=== PATIENT | female | born 1960 | race African-American/Black ===

== ENCOUNTER 2018-03-04 05:45 | Day surgery (SDC) | payer BC ==
[~2018-03-04] VITALS: Ht 154.9 cm; Wt 72.6 kg
[~2018-03-04 05:45] MED LIST: AMLODIPINE5 MG PO; APIDRA1 ML SC; ASPIRIN; ATORVASTATIN CA40 MG PO; ATUSS DS OR; BABY ASPIRIN81 MG PO; BACTRIM DS1 TAB PO; BRIMONIDINE TAR0.2 % OU; CEFTIN250 MG OR; CILOSTAZOL100 MG PO; CIPROFLOXACN500 MG PO; CLOBETASOL0.051 EX; CRESTOR40 MG PO; DIOVAN HC2 PO; DOXYCYCL HYC100 M3 OR; FIORICET PO; FISH OIL300 MG OR; FLEXERIL PO; FLONASE AL50 MCG/ACT; GABAPENTIN100 MG PO; HUMULIN R1 M1 SC; IMDUR30 MG PO; INSULIN PUM1; ISOSORB MONO60 M1 PO; KEFLEX500 M1 PO; KEFLEX500 MG PO; LANTUS100 MG/ML SC; LISINOPRIL10 MG PO; LOPRESSOR 550 MG/TAB PO; LORTAB 10-325 M1 TAB PO; LORTAB 5/3255 MG PO; LORTAB5 PO; LYRICA150 MG PO; LYRICA50 MG PO; LYRICA75 MG OR; METRONIDAZOLE500 MG PO; MUPIROCIN2 % EX; NAPROSYN500 MG PO; NORCO1 TA1 PO; NOVOLOG FL100 UNIT/M SC; NOVOLOG MIX SC; NOVOLOG100 IU/1 M SC; PANTOPRAZOLE SO40 MG PO; PERCOCET 5/321 COMBO PO; PERCOCET 5/325M1 TAB OR; PLAVIX75 MG PO; PRAVASTATIN20 MG PO; PREDNISONE20 MG OR; PRILOSEC40 MG PO; PROMETH/COD1 ML OR; PROTONIX40 M2 PO; REPATHA140 MG/ML SC; SYMLIN0.6 MG/ML SC; TIMOLOL 0.5%5 ML OU; TOUJEO SOL300 UNIT/M SC; TRIAMCINOLON0.025 % EX; VICOPROFEN OR; ZETIA10 MG PO; ZITHROMAX250 MG OR; ZOCOR40 MG OR
[2018-03-04 08:02] VITALS: BP 169/70
== END 2018-03-04 08:27 | disposition home or self-care (01) | DRG 392 ==
LOC: ENDO 05:45 → ORM 12:20 → ENDO 12:20 → ORM 13:15
PROVIDERS: ATTEND Surgery
PROC: 0DJD8ZZ Inspection of Lower Intestinal Tract, Via Natural or Artificial Opening Endoscopic (ICD-10-PCS; principal; 2018-03-04)
DX: R15.9 Full incontinence of feces (principal); I25.10 Atherosclerotic heart disease of native coronary artery without angina pectoris; I73.9 Peripheral vascular disease, unspecified; Z85.048 Personal history of other malignant neoplasm of rectum, rectosigmoid junction, and anus; Z92.3 Personal history of irradiation; Z92.21 Personal history of antineoplastic chemotherapy; Z90.49 Acquired absence of other specified parts of digestive tract; Z95.820 Peripheral vascular angioplasty status with implants and grafts; Z79.02 Long term (current) use of antithrombotics/antiplatelets

== ENCOUNTER 2019-10-17 18:52 | Emergency (ER) | payer BC ==
[~2019-10-17] VITALS: Ht 154.9 cm; Wt 71.4 kg
[2019-10-17] MEDS ORDERED: TOPAMAX100 MG PO (19:21)
[2019-10-17] MEDS ORDERED: AMITRIPTYLIN25 MG PO (19:22)
[2019-10-17] MEDS ORDERED: VISTARIL25 MG PO (19:22)
[2019-10-17 19:41] VITALS: BP 187/64
[2019-10-17] MEDS ORDERED: BACTRIM DS1 TAB PO (19:43)
[2019-10-17] MEDS ORDERED: KEFLEX500 M1 PO (19:43)
== END 2019-10-17 21:25 | disposition home or self-care (01) | DRG 603 ==
LOC: ED 18:52
DX: L02.413 Cutaneous abscess of right upper limb (principal)

== ENCOUNTER 2020-06-21 17:01 | Observation (INO) | payer OTHER ==
[~2020-06-21] VITALS: Ht 154.9 cm; Wt 72.4 kg
[~2020-06-21 17:01] MED LIST changes: +AMITRIPTYLIN25 MG PO; +TOPAMAX100 MG PO; +VISTARIL25 MG PO
--- NOTE | 2020-06-21 17:02 | NUR ---
PATIENT IMMEDIATELY TO ROOM 12 FOR EVAL AND PHYSICIAN NOTIFIED OF PATIENT STATUS
[2020-06-21 17:29] LABS: HEMOGLOBIN 12.8 g/dl (12.0-16.0); IMMATURE GRANULOCYTES 0.2 % (0.0-5.0); MEAN CELL VOLUME 85.7 fL CALC (80.0-100.0); MEAN CORPUSCULAR HGB 26.1 pG CALC (26.0-32.0); MEAN CORPUSCULAR HGB CONC 30.5 g/dL CAL (32.0-36.0); NEUT# 3.64 thou/uL (2.00-7.15); RED BLOOD COUNT 4.9 mill/uL (4.20-5.60); RED CELL DISTRI WIDTH 13.5 % (11.5-15.5)
--- NOTE | 2020-06-21 17:45 | NUR ---
COVID-19 SWAB COMPLETED. PT TOLERATED WELL. PRESSURE IN CHEST IS NOW DOWN TO A 2/10. PT RESTING COMFORTABLY IN STRETCHER IN NAD. MD AT BEDSIDE AND REUESTED BP TAKEN TO BOTH ARMS LEFT ARM 134/60, RIGHT ARM 138/66. NOTIIFED.
[2020-06-21 17:49] LABS: ACT PARTIAL THROMBO TIME 25.4 SECONDS (20.0-32.5); ALBUMIN 4.5 g/dL (3.2-5.0); ANION GAP 8 (6-22 (CALC)); BUN 16 mg/dL (8-23); BUN/CREATININE RATIO 18 (12-20 (CALC)); CARBON DIOXIDE 31 mmol/l (22-30); CHLORIDE 101 mmol/l (95-108); CREATININE 0.9 mg/dL (0.5-1.0); GFR > 60 ML/MIN (>=60 (CALC)); GFR FOR AFR.AMER. > 60 ML/MIN (>=60 (CALC)); INTERNATIONAL NORMALIZED RATIO 0.9 RATIO (0.7-1.3); POTASSIUM 4.4 mmol/l (3.5-5.1); PROTHROMBIN TIME 9.4 SECONDS (9.0-12.5); SODIUM 136 mmol/l (137-146); TOTAL PROTEIN 8.8 g/dL (6.3-8.2)
[2020-06-21 17:53] LABS: ALKALINE PHOSPHATASE 183 u/l (38-126); BILIRUBIN, TOTAL 0.6 mg/dL (0.0-1.4); SGOT/AST 145 u/l (9-36)
--- NOTE | 2020-06-21 18:20 | NUR ---
AFTER GIVING MORPHINE PT REPORTS PAIN TO LEFT AC IV SITE. SWELLING NOTED. IV SITE NOTED TO BE INFILTRATED. IV REMOVED AND WARM COMPRESS APPLIED. MD NOTIFIED.
--- NOTE | 2020-06-21 19:58 | NUR ---
W/D SKIN SR NO ECTOPY NO CP NO BACK PAIN.NO SWEATS NO NAUSEA
--- NOTE | 2020-06-21 21:04 | NUR ---
REMEDICATED FOR BACK PAIN,SR NO ECTOPY NO CP NO SWEATS NO NAUSEA
--- NOTE | 2020-06-21 21:40 | NUR ---
W/D SKIN SR NO ECTOPY NO C/O CP NOR BACK PAIN
--- NOTE | 2020-06-21 22:40 | NUR ---
W/D SKIN SR NOO ST T CHANGES NO CP OR BACK BACK PAIN
--- NOTE | 2020-06-21 22:50 | NUR ---
PHONE REPORT TO NURSE JOHNNY ON MS2
--- NOTE | 2020-06-21 22:55 | NUR ---
PT TRANSPORTED TO 272 VIA STRETCHER ON TELE IN STABLE CONDITION
--- NOTE | 2020-06-21 23:03 | NUR ---
PT ARRIVED TO FLOOR VIA STRETCHER ACCOMPANIED BY ER STAFF. PT ALERT AND ORIENTED. NO APPARENT DISTRESS NOTED. PT AMBULATED FROM STRETCHER TO BED WITH STEADY GAIT. PT C/O MIDSTERNAL PAIN THAT RADIATED THROUGH TO UPPER BACK 05/10. PT AMBULATED TO BATHROOM TO VOID, URINE SAMPLE OBTAINED AT THIS TIME AND SENT TO LAB. PT DENIES ANY PROBLEMS VOIDING. DISCUSSED POC. PT VERBALIZED UNDERSTANDING. ORIENTED TO ROOM AND CALL LIGHT SYSTEM. SANDWICH AND ICE WATER PROVIDED. PT HAS INSULIN PUMP THAT HAS BEEN REMOVED PRIOR TO CTA AND CAN NOT BE REAPPLIED UNTIL BRINGS SUPPLYS IN AM. SKIN INTACT, TWO SMALL SCABS NOTED TO BACK OF LEFT ARM AND RIGHT ANKLE. BP ELEVATED AT THIS TIME, WILL MEDICATE FOR PAIN AND REASSESS. CALL LIGHT WITHIN REACH. PT DENIES ANY OTHER CURRENT WANTS OR NEEDS. WILL CONTINUE TO MONITOR.
[2020-06-21 23:05] VITALS: BP 175/77
[2020-06-21 23:36] LABS: URINE BILIRUBIN - DIPSTICK NEGATIVE (NEGATIVE); URINE BLOOD DIPSTICK NEGATIVE (NEGATIVE); URINE COLOR YELLOW; URINE GLUCOSE - DIPSTICK NEGATIVE (NEGATIVE); URINE KETONE NEGATIVE (NEGATIVE); URINE LEUK ESTERASE NEGATIVE (NEGATIVE); URINE NITRITE - DIPSTICK NEGATIVE (Negative); URINE PROTEIN - DIPSTICK TRACE mg/dL (NEG-TRACE)
[2020-06-21 23:57] VITALS: BP 206/81
--- NOTE | 2020-06-22 00:14 | NUR ---
PT BP CONTINUES TO BE ELEVATED. ORDERS RECEIVED FROM ER PHYSICIAN AT THIS TIME. WILL ADMINISTER ONCE PROFILED BY PHARMACY.
--- NOTE | 2020-06-22 00:54 | NUR ---
PT C/O PAIN IN BACK AND CHEST, NO RELIEF FROM LORTAB PREVIOUSLY ADMINISTERED. 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 WILL MEDICATE WHEN PROFILED.
[2020-06-22 03:50] VITALS: BP 155/52
--- NOTE | 2020-06-22 06:10 | NUR ---
PT MEDICATED FOR BACK PAIN 09/09. PT REPOSITIONED WITH EXTRA PILLOWS AND WARM PACK PROVIDED.
[2020-06-22 06:17] LABS: HEMATOCRIT 38.6 % (37.0-47.0); HEMOGLOBIN 11.7 g/dl (12.0-16.0); IMMATURE GRANULOCYTES 0.4 % (0.0-5.0); MEAN CELL VOLUME 87.7 fL CALC (80.0-100.0); MEAN CORPUSCULAR HGB 26.6 pG CALC (26.0-32.0); MEAN CORPUSCULAR HGB CONC 30.3 g/dL CAL (32.0-36.0); NEUT# 2.48 thou/uL (2.00-7.15); RED BLOOD COUNT 4.4 mill/uL (4.20-5.60); RED CELL DISTRI WIDTH 13.7 % (11.5-15.5)
[2020-06-22 06:35] LABS: ANION GAP 8 (6-22 (CALC)); BUN 18 mg/dL (8-23); BUN/CREATININE RATIO 22 (12-20 (CALC)); CARBON DIOXIDE 28 mmol/l (22-30); CHLORIDE 103 mmol/l (95-108); CREATININE 0.8 mg/dL (0.5-1.0); GFR > 60 ML/MIN (>=60 (CALC)); GFR FOR AFR.AMER. > 60 ML/MIN (>=60 (CALC)); POTASSIUM 4.1 mmol/l (3.5-5.1); SODIUM 136 mmol/l (137-146)
[2020-06-22 08:04] VITALS: BP 162/75
[2020-06-22 10:30] VITALS: BP 126/56
--- NOTE | 2020-06-22 10:42 | NUR ---
Patient alert and oriented. c/o lt flank and mid back pain. She stated that po medication did not relieve pain. Notified doctor, orders given for morphine. Patient given morphine and solu medrol. Will continue to monitor.
[2020-06-22] MEDS ORDERED: MEDDOSEPAK PO (12:41)
--- NOTE | 2020-06-22 14:08 | NUR ---
Patient discharge via wheelchair. patient instructed to f/u with pcp. Patient given rx and a returned to work 06/26/20. Dc'd iv site bilat arms.
== END 2020-06-22 13:56 | disposition home or self-care (01) | DRG 195 ==
LOC: ED 17:01 → ED-I 21:46 → ED 21:56 → MS2 21:57 → ED-I 21:57 → MS2 22:18
PROVIDERS: Student in an Organized Health Care Education/Training Program; ADMIT Internal Medicine; ATTEND Internal Medicine
DX: R09.1 Pleurisy (principal); I10 Essential (primary) hypertension; E11.69 Type 2 diabetes mellitus with other specified complication; E78.5 Hyperlipidemia, unspecified; E11.40 Type 2 diabetes mellitus with diabetic neuropathy, unspecified; I25.10 Atherosclerotic heart disease of native coronary artery without angina pectoris; J44.9 Chronic obstructive pulmonary disease, unspecified; G43.909 Migraine, unspecified, not intractable, without status migrainosus; Z95.5 Presence of coronary angioplasty implant and graft; Z79.4 Long term (current) use of insulin; Z87.891 Personal history of nicotine dependence; Z20.828 Contact with and (suspected) exposure to other viral communicable diseases
CPT/HCPCS: G0378; Q9967

== ENCOUNTER 2022-01-18 18:24 | Emergency (ER) | payer OTHER ==
[~2022-01-18] VITALS: Ht 154.9 cm; Wt 66.0 kg
[~2022-01-18 18:24] MED LIST changes: +ISOSORB MONO20 MG PO; -ISOSORB MONO60 M1 PO; +MEDDOSEPAK PO
[2022-01-18] MEDS ORDERED: COZAAR100 MG PO (21:23)
[2022-01-18] MEDS ORDERED: NITROFURANTN100 M2 PO (21:23)
[2022-01-18 21:24] LABS: HEMATOCRIT 43.1 % (37.0-47.0); HEMOGLOBIN 13.1 g/dl (12.0-16.0); IMMATURE GRANULOCYTES 0.2 % (0.0-5.0); MEAN CELL VOLUME 87.2 fL CALC (80.0-100.0); MEAN CORPUSCULAR HGB 26.5 pG CALC (26.0-32.0); MEAN CORPUSCULAR HGB CONC 30.4 g/dL CAL (32.0-36.0); NEUT# 3.56 thou/uL (2.00-7.15); RED BLOOD COUNT 4.94 mill/uL (4.20-5.60); RED CELL DISTRI WIDTH 12.6 % (11.5-15.5)
[2022-01-18] MEDS ORDERED: LASIX 20 MG TAB20 MG PO (21:28)
[2022-01-18] MEDS ORDERED: NITROSTAT0.3 MG SL (21:30)
[2022-01-18] MEDS ORDERED: UBRELVY50 MG PO (21:32)
[2022-01-18 21:37] LABS: ALKALINE PHOSPHATASE 107 u/l (38-126); ANION GAP 16 (6-22 (CALC)); BUN 14 mg/dL (8-23); BUN/CREATININE RATIO 17 (12-20 (CALC)); CARBON DIOXIDE 24 mmol/l (22-30); CHLORIDE 102 mmol/l (95-108); CREATININE 0.8 mg/dL (0.5-1.0); GFR > 60 ML/MIN (>=60 (CALC)); GFR FOR AFR.AMER. > 60 ML/MIN (>=60 (CALC)); POTASSIUM 3.6 mmol/l (3.5-5.1); SODIUM 138 mmol/l (137-146); TOTAL PROTEIN 7.9 g/dL (6.3-8.2)
[2022-01-18 21:39] LABS: BILIRUBIN, TOTAL 0.3 mg/dL (0.0-1.4); SGOT/AST 22 u/l (9-36)
[2022-01-18] MEDS ORDERED: PRALUENT75 MG IM (21:49)
[2022-01-18] MEDS ORDERED: AIMOVIG70 MG/ML IM (21:50)
[2022-01-19] MEDS ORDERED: MIRALAX17 GM PO (01:11)
[2022-01-19 01:26] VITALS: BP 186/89
== END 2022-01-19 02:07 | disposition home or self-care (01) | DRG 392 ==
LOC: ED 18:24
PROVIDERS: Emergency Medicine
DX: K59.00 Constipation, unspecified (principal); F17.200 Nicotine dependence, unspecified, uncomplicated; Z85.038 Personal history of other malignant neoplasm of large intestine
CPT/HCPCS: Q9967

== ENCOUNTER 2022-03-05 06:56 | Day surgery (SDC) | payer OTHER ==
[~2022-03-05 06:56] MED LIST changes: +AIMOVIG70 MG/ML IM; +COZAAR100 MG PO; +LASIX 20 MG TAB20 MG PO; +METAN3; +MIRALAX17 GM PO; +NITROFURANTN100 M2 PO; +NITROSTAT0.3 MG SL; +PRALUENT75 MG IM; +UBRELVY50 MG PO
[2022-03-05] MEDS ORDERED: PLAVIX75 MG PO (07:33)
[2022-03-05] MEDS ORDERED: ASPIRIN81 MG PO (07:35)
[2022-03-05 11:11] VITALS: BP 170/74
== END 2022-03-05 09:42 | disposition home or self-care (01) | DRG 395 ==
LOC: ENDO 06:56 → ORM 08:40 → ENDO 09:42
PROVIDERS: ATTEND Surgery
PROC: 0DJD8ZZ Inspection of Lower Intestinal Tract, Via Natural or Artificial Opening Endoscopic (ICD-10-PCS; principal; 2022-03-05)
PROC: 0DB98ZX Excision of Duodenum, Via Natural or Artificial Opening Endoscopic, Diagnostic (ICD-10-PCS; 2022-03-05)
DX: D13.2 Benign neoplasm of duodenum (principal); K64.8 Other hemorrhoids; I10 Essential (primary) hypertension; E11.9 Type 2 diabetes mellitus without complications; Z90.49 Acquired absence of other specified parts of digestive tract; Z95.5 Presence of coronary angioplasty implant and graft; Z95.820 Peripheral vascular angioplasty status with implants and grafts; Z79.4 Long term (current) use of insulin; Z85.038 Personal history of other malignant neoplasm of large intestine

== ENCOUNTER 2022-10-12 18:46 | Emergency (ER) | payer OTHER ==
[~2022-10-12] VITALS: Ht 154.9 cm; Wt 66.0 kg
[~2022-10-12 18:46] MED LIST changes: +ASPIRIN81 MG PO
[2022-10-12 19:08] VITALS: BP 164/58
[2022-10-12 19:16] VITALS: BP 164/51
[2022-10-12 20:52] LABS: HEMATOCRIT 40.9 % (37.0-47.0); HEMOGLOBIN 12.8 g/dl (12.0-16.0); IMMATURE GRANULOCYTES 0.2 % (0.0-5.0); MEAN CELL VOLUME 88.1 fL CALC (80.0-100.0); MEAN CORPUSCULAR HGB 27.6 pG CALC (26.0-32.0); MEAN CORPUSCULAR HGB CONC 31.3 g/dL CAL (32.0-36.0); NEUT# 2.15 thou/uL (2.00-7.15); RED BLOOD COUNT 4.64 mill/uL (4.20-5.60); RED CELL DISTRI WIDTH 13.3 % (11.5-15.5)
[2022-10-12 21:04] LABS: ALBUMIN 4.2 g/dL (3.2-5.0); ALKALINE PHOSPHATASE 74 u/l (38-126); BUN 17 mg/dL (8-23); BUN/CREATININE RATIO 16 (12-20 (CALC)); CARBON DIOXIDE 25 mmol/l (22-30); CHLORIDE 107 mmol/l (95-108); CREATININE 1.1 mg/dL (0.5-1.0); GFR FOR AFR.AMER. > 60 ML/MIN (>=60 (CALC)); GFR OTHER RACES 50 ML/MIN (>=60 (CALC)); MAGNESIUM 2.1 mg/dL (1.6-2.3); SGOT/AST 37 u/l (9-36); SODIUM 141 mmol/l (137-146); TOTAL PROTEIN 7.7 g/dL (6.3-8.2)
[2022-10-12 21:05] LABS: ANION GAP 14 (6-22 (CALC)); BILIRUBIN, TOTAL 0.5 mg/dL (0.0-1.4); POTASSIUM 4.7 mmol/l (3.5-5.1)
[2022-10-12] MEDS ORDERED: ULTRAM50 MG PO (22:52)
[2022-10-12] MEDS ORDERED: CYCLOBENZAPRINE10 MG PO (22:52)
[2022-10-12 22:55] VITALS: BP 160/50
== END 2022-10-12 22:55 | disposition home or self-care (01) | DRG 93 ==
LOC: ED 18:46
PROVIDERS: Emergency Medicine
DX: R25.2 Cramp and spasm (principal); F17.200 Nicotine dependence, unspecified, uncomplicated

== ENCOUNTER 2022-11-30 07:58 | Emergency (ER) | payer OTHER ==
[~2022-11-30] VITALS: Ht 154.9 cm; Wt 65.0 kg
[~2022-11-30 07:58] MED LIST changes: +CYCLOBENZAPRINE10 MG PO; +ULTRAM50 MG PO
[2022-11-30 08:06] VITALS: BP 178/91
[2022-11-30 09:27] VITALS: BP 178/91
== END 2022-11-30 09:28 | disposition home or self-care (01) | DRG 556 ==
LOC: ED 07:58
DX: M79.672 Pain in left foot (principal)